=== PATIENT | male | born 1990 | race Caucasian/White ===

== ENCOUNTER 2016-06-03 13:29 | Emergency (ER) | payer OTHER ==
[2016-06-03 14:13] LABS: BILIRUBIN NEGATIVE (NEGATIVE); BLOOD NEGATIVE Ery/uL (NEGATIVE); CLARITY CLEAR (CLEAR); COLOR YELLOW (YELLOW); GLUCOSE (U) NORMAL (NORMAL); KETONE (U) NEGATIVE (NEGATIVE); LEUKOCYTES NEGATIVE Leu/uL (NEGATIVE); NITRITE NEGATIVE (NEGATIVE); PROTEIN TRACE (LOW) mg/dL (NEGATIVE); SPECIFIC GRAVITY >=1.030 (1.001-1.030); UROBILINOGEN 0.2 mg/dL (0.2-1.0)
[2016-06-03 14:24] LABS: BACTERIA TRACE
[2016-06-03 14:25] LABS: BASOPHIL 0 % (0-2); EOSINOPHIL 0 % (0-5); HCT 43.4 % (42.0-52.0); HGB 15.1 g/dl (13.2-18.0); LYMPHOCYTE 5.5 % (15-48); MCH 30.9 pg (25.0-31.0); MCHC 34.8 g/dL (32.0-36.0); MCV 88.8 fL (78.0-100.0); MONOCYTE 7.9 % (0-12); MPV 10.8 fL (6.0-9.5); NEUTROPHIL 86.6 % (41-80); PLT 310 K/uL (150-400); RBC 4.89 M/uL (4.70-6.00); RDW 13.2 % (11.5-14.0)
[2016-06-03 14:26] LABS: MUCOUS MODERATE
[2016-06-03 14:27] LABS: RENAL EPITHELIAL CELLS RARE
[2016-06-03 14:28] LABS: WBC 21.6 K/uL (4.0-10.5)
[2016-06-03 14:44] LABS: CREATININE 0.8 mg/dL (0.7-1.2); POTASSIUM 4.1 mmol/L (3.5-5.1)
== END 2016-06-03 16:03 | disposition home or self-care (01) ==
LOC: FER 13:29
PROVIDERS: Emergency Medicine
DX: E86.0 Dehydration (principal); R11.2 Nausea with vomiting, unspecified; R19.7 Diarrhea, unspecified; M54.9 Dorsalgia, unspecified; G89.29 Other chronic pain; Z91.040 Latex allergy status; Z98.890 Other specified postprocedural states
CPT/HCPCS: 36415; 80048; 81001; 85025; 93005; J2405